=== PATIENT | female | born 1965 | race Caucasian/White ===

== ENCOUNTER 2016-12-21 03:35 | Emergency (ER) | payer OTHER ==
[~2016-12-21] VITALS: Ht 162.6 cm; Wt 92.7 kg
[~2016-12-21 03:35] MED LIST: ACIPHEX20 MG PO; ALBUTEROL0.83 MG/ML IH; AMOXICILLIN 50500 MG PO; CYMBALTA60 MG PO; FLAGYL500 MG PO; METFORMIN500 MG PO; NORCO 325 MG-51 TAB PO; PROTONIX 40MG T40 MG PO; TRAZADONE HYDR100 MG PO
[2016-12-21 03:51] VITALS: TEMP 98.6
[2016-12-21] MEDS ORDERED: CARDIZEM 30MG T30 MG PO (03:58)
[2016-12-21] MEDS ORDERED: NORVASC 10MG10 MG PO (03:58)
[2016-12-21 04:30] LABS: BASO # 0.1 (0.0-0.2); BASO % 0.6 % (0.0-2.0); EOS # 0.3 (0.0-0.7); EOS % 1.7 % (0-4.0); GRAN # 10.3 (1.4-6.5); GRAN % 68.1 % (42.2-75.2); HEMATOCRIT 37.8 % (37.0-47.0); LYMPH # 3.1 (1.2-3.4); LYMPH % 20.3 % (20.0-51.0); MEAN CELL VOLUME 70 fl (80.0-100.0); MEAN CORPUSCULAR HEMOGLOBIN 21 pg (27.0-31.0); MEAN CORPUSCULAR HGB CONC 30 g/dl (33.0-37.0); MONO # 1.4 (0.1-0.6); PLATELET COUNT 370 K/mm3 (130-400); RED BLOOD COUNT 5.43 M/mm3 (4.10-5.30); REDCELL DISTRIBUTION WIDTH-CV 15.1 % (11.5-14.5); WHITE BLOOD COUNT 15.1 K/mm3 (4.8-10.8)
[2016-12-21 04:32] LABS: HEMOGLOBIN 11.2 g/dl (12.5-16.0)
[2016-12-21 04:42] LABS: ALBUMIN 4.4 gm/dL (3.5-5.0); BILIRUBIN,TOTAL 0.6 mg/dL (0.0-1.0); C-REACTIVE PROTEIN 0.7 mg/dL (0.0-0.9); CALCIUM 10.3 mg/dL (8.4-10.2); CREATININE, serum 0.77 mg/dL (0.52-1.25); POTASSIUM 4.5 mmol/L (3.4-5.0); TOTAL PROTEIN 7.6 gm/dL (6.4-8.2)
[2016-12-21 04:56] LABS: URIC ACID 3.6 mg/dL (2.5-6.2)
[2016-12-21 05:57] LABS: PROTHROMBIN TIME 10.7 SECONDS (9.7-12.8)
[2016-12-21 06:00] LABS: PARTIAL THROMBOPLASTIN TIME 34.8 SECONDS (26.0-37.0)
[2016-12-21 06:23] LABS: ERYTHROCYTE SEDIMENTATION RATE 5 mm/hr (0-20)
[2016-12-21] MEDS ORDERED: PERCOCET 325 MG1 TA2 PO (06:30)
[2016-12-21 06:35] LABS: SYNOVIAL FL. MONONUCLEAR 41.5 % (0-75); SYNOVIAL FL. POLYMORPHONUCLEAR 58.5 % (0-25); SYNOVIAL FLUID WBC 4639 /mm3 (200-600)
[2016-12-21 07:30] VITALS: BP 122/78; PULSE 95
[2016-12-21 07:47] LABS: SYNOVIAL FLUID APPEARANCE BLOODY; SYNOVIAL FLUID COLOR RED
[2016-12-23 07:29] LABS: SYN APPEARANCE Bloody (()); SYN COLOR Red (())
== END 2016-12-21 07:35 | disposition home or self-care (01) ==
LOC: COL.ER 03:35
PROVIDERS: Emergency Medicine
DX: M25.061 Hemarthrosis, right knee (principal)
CPT/HCPCS: J1170; J3010; L1830

== ENCOUNTER 2017-02-17 21:54 | Emergency (ER) | payer OTHER ==
[~2017-02-17] VITALS: Ht 162.6 cm; Wt 94.5 kg
[~2017-02-17 21:54] MED LIST changes: +CARDIZEM 30MG T30 MG PO; +NORVASC 10MG10 MG PO; +PERCOCET 325 MG1 TA2 PO
[2017-02-17 22:01] VITALS: TEMP 98.5
[2017-02-17] MEDS ORDERED: NORVASC 10MG10 MG PO (22:06)
[2017-02-17] MEDS ORDERED: CARDIZEM 30MG T30 MG PO (22:06)
[2017-02-17] MEDS ORDERED: NORCO 325 MG-51 TAB PO (22:21)
[2017-02-17 22:44] VITALS: BP 176/85; PULSE 80
== END 2017-02-17 22:45 | disposition home or self-care (01) ==
LOC: COL.ER 21:54
DX: M25.461 Effusion, right knee (principal); I10 Essential (primary) hypertension; E11.9 Type 2 diabetes mellitus without complications

== ENCOUNTER → 2020-12-18 | Outpatient (CLI) | payer MEDICAID | LOC: MHCPAIN 10:43 | DX: M47.817 Spondylosis without myelopathy or radiculopathy, lumbosacral region (principal); M54.5 Low back pain; M96.1 Postlaminectomy syndrome, not elsewhere classified; M53.3 Sacrococcygeal disorders, not elsewhere classified; F17.210 Nicotine dependence, cigarettes, uncomplicated | CPT/HCPCS: G0463 ==